=== PATIENT | female | born 1970 | race Caucasian/White ===

== ENCOUNTER 2018-03-27 12:47 | Emergency (ER) | payer OTHER | END 2018-03-27 13:30 | disposition home or self-care (01) | LOC: FTE 12:47 | DX: J06.9 Acute upper respiratory infection, unspecified (principal) | CPT/HCPCS: 99282; Z7502 ==

== ENCOUNTER 2018-09-20 09:32 | Emergency (ER) | payer OTHER | END 2018-09-20 11:31 | disposition home or self-care (01) | LOC: FTE 09:32 | DX: J02.9 Acute pharyngitis, unspecified (principal); I10 Essential (primary) hypertension | CPT/HCPCS: 99282 ==